=== PATIENT | female | born 1960 | race Caucasian/White ===

== ENCOUNTER 2018-06-21 07:29 | Day surgery (SDC) | payer BC ==
[~2018-06-21 07:29] MED LIST: EPHEDrine SULFATE 50 MG/5 ML SYG
[2018-06-21] MEDS ORDERED: MIDAZOLAM 1 MG/ML 2 ML INJ (10:26)
[2018-06-21] MEDS ORDERED: METOCLOPRAMIDE 10 MG INJ (10:26)
[2018-06-21] MEDS ORDERED: GLYCOPYRROLATE 0.4 MG INJ ×2 (10:30→11:38)
[2018-06-21] MEDS ORDERED: DIPHENHYDRAMINE 50 MG INJ IV (10:30)
[2018-06-21] MEDS ORDERED: FENTAnyl 50 MCG/ML VIAL (10:30)
[2018-06-21] MEDS ORDERED: OXYCODONE/ACETAMINOPHEN (5/325) TAB PO (10:30)
[2018-06-21] MEDS ORDERED: HYDROmorphONE 1 MG/5 ML IV SYRINGE IV ×2 (10:30)
[2018-06-21] MEDS ORDERED: PROPOFOL 20 ML (10:30)
[2018-06-21] MEDS ORDERED: NEOSTIGMINE 3 MG/3 ML SYRINGE ×2 (10:30→11:38)
[2018-06-21] MEDS ORDERED: ONDANSETRON 4 MG INJ (10:30)
[2018-06-21] MEDS ORDERED: MEPERIDINE 25 MG INJ IV (10:30)
[2018-06-21] MEDS ORDERED: ROCURONIUM 50 MG INJ (10:30)
[2018-06-21] MEDS: LIDOCAINE 1%/EPI 30 ML INJ (11:14)
[2018-06-21] MEDS: OXYMETAZOLINE 0.05% 15 ML NAS SPRAY NASAL (11:15)
[2018-06-21] MEDS: HYDROmorphONE 1 MG/5 ML IV SYRINGE IV (12:21)
[2018-06-21] MEDS: ONDANSETRON 4 MG INJ IV (12:21)
== END 2018-06-21 13:20 | disposition home or self-care (01) ==
LOC: SDS 07:29
DX: J34.3 Hypertrophy of nasal turbinates (principal); J34.2 Deviated nasal septum
CPT/HCPCS: 30140; 88300